=== PATIENT | male | born 1960 | race Caucasian/White ===

== ENCOUNTER 2019-02-13 14:31 | Inpatient (IN) | payer OTHER ==
[2019-02-13 18:54] VITALS: BMI 25.4
--- NOTE | 2019-02-13 21:38 | HP ---
COWS - Scale Resting Pulse: 1= [place] 81-100 (Frequent vomiting) Sweatin=Flushed/Facial Moisture Restless Observation: 3= Extraneous Movement Pupil Size: 2= Moderately Dilated ((L) pupil = 4 mm) Bone or Joint Aches: 2= Severe Diffuse Aches Runny Nose/ Eye Tearin= Runny Nose/Eyes GI Upset > 30mins: 3= Vomiting/Diarrhea Tremor Observation: 4= Gross Tremor/Twitching Yawning Observation: 0= None Anxiety or Irritability: 4=Extreme Anxiety Goose Flesh Skin: 0=Smooth Skin COWS Score: 23 CIWA Score Nausea/Vomitin-Cont. Nausea/Vomiting (Frequent vomiting) Muscle Tremors: 4-Moderate,w/Arms Extend Anxiety: 4-Mod. Anxious/Guarded Agitation: 4-Moderately Restless Paroxysmal Sweats: 3 (Increased facial moisture) Orientation: 1-Uncertain about Date Tacttile Disturbances: 0-None Auditory Disturbances: 0-None Visual Disturbances: 0-None Headache: 0-None Present CIWA-Ar Total Score: 23 - Admission Criteria OASAS Guidelines: Admission for Medically Managed Detox: Requires at least one of the followin. CIWA greater than 12 2. Seizures within the past 24 hours 3. Delirium tremens within the past 24 hours 4. Hallucinations within the past 24 hours 5. Acute intervention needed for co occurring medical disorder 6. Acute intervention needed for co occurring psychiatric disorder 7. Severe withdrawal that cannot be handled at a lower level of care (continued vomiting, continued diarrhea, abnormal vital signs) requiring intravenous medication and/or fluids 8. Patient presents the following: CIWA greater than 12 Admission Criteria Met: Admission criteria met Admission ROS [facility] Chief Complaint: Heroin and Xanax withdrawal and trouble breathing. Allergies/Adverse Reactions: Allergies Allergy/AdvReac Type Severity Reaction Status Date / Time No Known Allergies Allergy Verified 02/13/19 18:40 History of Present Illness: 58 yo presents w/ opiate and Xanax withdrawal requesting detox. Patient has a letter from his provider, dated 02/12/2019, Dr. Vaca which states he agrees patient should be detoxed and that he will stop prescribing any controlled substances (Xanax/suboxone). Patient w/ acute SOB and wheezing and treated in C w/ albuterol neb treatment. Post neb tx O2 Sat = 99 % and lungs clear. Heroin use began at age 17. Current use approx 5 bags/day IV. Cocaine use began at age 17. Alprazolam use began at age 19. Current use 6 mg daily Nicotine use began at age 17. Smokes 5 cig/day Denies seizures, blackouts, overdose. PMHx: Asthma, Hepatitis C; HTN - can't remember name of medication being taken MHHx: Depression. Denies thoughts of harming self or others. Patient Name: Gianni Pennington Date: 1960 Address: [address] [place] [address] Sex: Male Rx Written Rx Dispensed Drug Quantity Days Supply Prescriber Name 01/18/2019 01/21/2019 alprazolam 1 mg tablet 60 30 Ozzie Vaca MD 01/18/2019 01/21/2019 buprenorphine-naloxone 8-2 mg sl film 60 30 Ozzie Vaca MD 12/21/2018 12/24/2018 buprenorphine-naloxone 8-2 mg sl film 60 30 Ozzie Vaca MD 12/21/2018 12/24/2018 alprazolam 1 mg tablet 60 30 Ozzie Vaca MD 12/06/2018 12/06/2018 alprazolam 1 mg tablet 30 15 Ozzie Vaca MD 11/23/2018 11/23/2018 buprenorphine-naloxone 8-2 mg sl film 60 30 Ozzie Vaca MD 11/23/2018 11/23/2018 alprazolam 1 mg tablet 30 15 Ozzie Vaca MD 11/07/2018 11/07/2018 alprazolam 1 mg tablet 30 15 Ozzie Vaca MD 10/24/2018 10/24/2018 buprenorphine-naloxone 8-2 mg sl film 60 30 Ozzie Vaca MD 10/24/2018 10/24/2018 alprazolam 1 mg tablet 30 15 Ozzie Vaca MD 10/02/2018 10/04/2018 alprazolam 1 mg tablet 30 15 Ozzie Vaca MD 09/21/2018 09/21/2018 buprenorphine-naloxone 8-2 mg sl film 60 30 Ozzie Vaca MD 09/21/2018 09/21/2018 alprazolam 0.5 mg tablet 30 10 Ozzie Vaca MD 08/23/2018 08/27/2018 suboxone 8 mg-2 mg sl film 60 30 Ozzie Vaca MD 08/23/2018 08/27/2018 alprazolam 1 mg tablet 60 30 Nola, Ozzie Braden MD 07/26/2018 07/26/2018 alprazolam 1 mg tablet 60 30 Nola, Ozzie Braden MD 07/26/2018 07/26/2018 suboxone 8 mg-2 mg sl film 60 30 Nola, Ozzie Braden MD 06/21/2018 06/25/2018 alprazolam 1 mg tablet 60 30 Nola, Ozzie Braden MD 06/21/2018 06/25/2018 suboxone 8 mg-2 mg sl film 60 30 Nola, Ozzie Braden MD 05/23/2018 05/25/2018 suboxone 8 mg-2 mg sl film 60 30 Nola, Ozzie Braden MD 05/23/2018 05/25/2018 alprazolam 1 mg tablet 60 30 Nola, Ozzie Braden MD 04/26/2018 04/26/2018 alprazolam 1 mg tablet 60 30 Nola, Ozzie Braden MD 04/26/2018 04/26/2018 suboxone 8 mg-2 mg sl film 60 30 Nola, Ozzie Braden MD 03/29/2018 03/29/2018 alprazolam 1 mg tablet 60 30 Nola, Ozzie Braden MD 03/29/2018 03/29/2018 suboxone 8 mg-2 mg sl film 60 30 Nola, Ozzie Braden MD 02/22/2018 02/22/2018 alprazolam 1 mg tablet 60 30 Nola, Ozzie Braden MD 02/22/2018 02/22/2018 suboxone 8 mg-2 mg sl film 60 30 Nola, Ozzie Braden MD Exam Limitations: No Limitations - Ebola screening Have you traveled outside of the country in the last 21 days: No Have you had contact with anyone from an Ebola affected area: No Have you been sick,other than usual withdrawal symptoms: No (Denies recent exposure to measles) Do you have a fever: No - Review of Systems Constitutional: Chills, Diaphoresis EENT: reports: Other (Blind (R) eye w/ prosthesis) Respiratory: reports: Cough, Shortness of Breath, Wheezing Cardiac: reports: No Symptoms Reported GI: reports: Nausea, Vomiting : reports: No Symptoms Reported Musculoskeletal: reports: Other (Generalized bone pain. Uses a cane for support. ) Neuro: reports: Tremors Endocrine: reports: No Symptoms Reported Hematology: reports: Anemia (Uknown type) Psychiatric: reports: Judgement Intact, Agitated, Anxious, Depressed (Denies thoughts of harming self or others.), Disorientated (Unsure of month or day) Patient History - PPD History Previous Implant?: No Implanted On Prior R Admission?: No PPD to be Administered?: Yes - Smoking Cessation Smoking history: Current every day smoker Have you smoked in the past 12 months: Yes Aproximately how many cigarettes per day: 5 Hx Chewing Tobacco Use: No Initiated information on smoking cessation: Yes 'Breaking Loose' booklet given: 02/13/19 - Substance & Tx. History Hx Alcohol Use: No Hx Substance Use: Yes Substance Use Type: Cocaine, Heroin, Opiates, Prescribed (Xanax ) Hx Substance Use Treatment: Yes (detox) - Substances abused Heroin Substance route: Injection Frequency: Daily Amount used: 5 bags Age of first use: 17 Date of last use: 02/13/19 Cocaine Substance route: Injection Frequency: 1-2 times per week Amount used: 1 bag Age of first use: 17 Date of last use: 02/13/19 Alprazolam (Xanax) Substance route: Oral Frequency: Daily Amount used: 3 of 2 mg Age of first use: 19 Date of last use: 02/13/19 Admission Physical Exam S - Vital Signs Vital Signs: Vital Signs - 24 hr 02/13/19 18:37 Temperature 98.3 F Pulse Rate 93 H Respiratory 20 Rate Blood Pressure 149/92 - Physical General Appearance: Yes: Nourished, Moderate Distress, Tremorous, Irritable, Sweating, Anxious HEENTM: Yes: Hearing grossly Normal, Normocephalic, Normal Voice, KAREEM ((L) pupil = 4 mm), Pharynx Normal, Orbits (Blind (R) eye w/ prosthesis), Other ( Perforated nasal septum) Respiratory: Yes: Lungs Clear (After albuterol neb tx.), Normal Breath Sounds, No Respiratory Distress Neck: Yes: No masses,lesions,Nodules, Supple Breast: Yes: Breast Exam Deferred Cardiology: Yes: Regular Rhythm, Regular Rate, S1, S2 Abdominal: Yes: Non Tender, Flat, Soft, Increased Bowel Sounds, Other (vomiting) Genitourinary: Yes: Within Normal Limits Back: Yes: Normal Inspection Musculoskeletal: Yes: full range of Motion, Gait Steady Extremities: Yes: Normal Capillary Refill, Tremors (gross tremors) 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, Fully Oriented, Alert, Motor Strength 5/5 Integumentary: Yes: Normal Color, Warm, Track [place] Lymphatic: Yes: Within Normal Limits - Diagnostic (1) Opioid dependence with withdrawal Current Visit: Yes Status: Acute (2) Cocaine dependence, uncomplicated Current Visit: Yes Status: Chronic (3) Sedative, hypnotic or anxiolytic dependence with withdrawal, uncomplicated Current Visit: Yes Status: Acute (4) Nicotine dependence, uncomplicated Current Visit: Yes Status: Chronic Qualifiers: Nicotine product type: cigarettes Qualified Code(s): F17.210 - Nicotine dependence, cigarettes, uncomplicated (5) Asthma Current Visit: Yes Status: Acute Qualifiers: Asthma severity: moderate Asthma persistence: unspecified Asthma complication type: with acute exacerbation Qualified Code(s): J45.901 - Unspecified asthma with (acute) exacerbation (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 (7) Perforated nasal septum Current Visit: Yes Status: Chronic Cleared for Admission S - Detox or Rehab [facility] Level of Care: Medically Managed Detox Regimen/Protocol: Methadone/Valium Claeared for Rehab Admission: No Breathalyzer - Breathalyzer Breathalyzer: 0 Urine Drug Screen - Test Device Lot number: [id number] Expiration date: 11/20/20 - Control Is test valid?: Yes - Results Drug screen NEGATIVE: No Urine drug screen results: THC-Marijuana, OBIE-Cocaine, FEN-Fentanyl, MOP-Opiates , OXY-Oxycodone, BZO-Benzodiazepines Inpatient Rehab Admission - Rehab Decision to Admit Inpatient rehab admission?: No
[2019-02-13] MEDS ORDERED: MAG HYDROX/AL HYDROX/SIMETH 30 ML UNIT-DOSE CUP PO PRN (22:38)
[2019-02-13] MEDS ORDERED: METHOCARBAMOL 500 MG TABLET PO PRN (22:38)
[2019-02-13] MEDS ORDERED: MENTHOL/PHENOL 1 EACH UD MM PRN (22:38)
[2019-02-13] MEDS ORDERED: MAGNESIUM HYDROX 2400MG/30ML ORAL SUSPENSION 30 ML CUP PO PRN (22:38)
[2019-02-13] MEDS ORDERED: METHADONE HCL 10 MG TABLET (FOR DETOX USE ONLY) PO ONE (22:38)
[2019-02-13] MEDS ORDERED: NICOTINE POLACRILEX 2 MG GUM BUC PRN (22:38)
[2019-02-13] MEDS ORDERED: MAGNESIUM CITRATE 300 ML BOTTLE PO PRN (22:38)
[2019-02-13] MEDS ORDERED: IBUPROFEN 400 MG TABLET (FP) PO PRN (22:38)
[2019-02-13] MEDS ORDERED: ACETAMINOPHEN 325 MG TABLET (FP) PO PRN ×2 (22:38)
[2019-02-13] MEDS ORDERED: BISMUTH SUBSALICYLATE 524 MG/30 ML UD PO PRN (22:38)
[2019-02-13] MEDS ORDERED: LORazepam 1 MG TABLET PO PRN (22:38)
[2019-02-13] MEDS ORDERED: cloNIDine HCL 0.1 MG TABLET PO PRN (22:38)
[2019-02-13] MEDS ORDERED: ONDANSETRON *ODT* 4 MG TABLET SL PRN (22:43)
[2019-02-13] MEDS ORDERED: TRIMETHOBENZAMIDE HCL 200MG/2ML INJ IM ONE (22:43)
[2019-02-13] MEDS ORDERED: ALBUTEROL SO4 2.5/IPRATROPIUM 0.5 INH SOL 3 ML VIAL.NEB. NEB ONE (23:00)
[2019-02-13] MEDS: LORazepam 2 MG TABLET PO SCH (23:26)
[2019-02-13] MEDS: MELATONIN 5 MG TABLETS PO PRN (23:26)
[2019-02-14] MEDS: LORazepam 2 MG TABLET PO SCH ×4 (05:11→22:22)
[2019-02-14] MEDS ORDERED: ALBUTEROL SO4 8 GM HFA INHALER IH ONE (07:41)
[2019-02-14] MEDS: ALBUTEROL SO4 0.083% IH SOL 2.5 MG/3 ML VIAL.NEB. NEB PRN (08:01)
[2019-02-14] MEDS ORDERED: METHADONE HCL 5 MG TABLET (FOR DETOX USE ONLY) PO ONE (10:00)
[2019-02-14 10:41] LABS: HEMOGLOBIN 13.8 GM/dL (11.7-16.9); MCH 31.2 pg (25.7-33.7); MCHC 33.8 g/dl (32.0-35.9); MEAN CELL VOLUME 92.3 fl (80-96); MEAN PLT VOLUME 9.8 fl (7.5-11.1); PLATELET COUNT 184 K/MM3 (134-434); RBC 4.44 M/mm3 (4.00-5.60); RDW 13.6 % (11.9-15.9); WHITE BLOOD COUNT 7.5 K/mm3 (4.0-10.0)
[2019-02-14 10:49] LABS: ALBUMIN 3.7 g/dl (3.4-5.0); BILIRUBIN,TOTAL 0.6 mg/dL (0.2-1); BLOOD UREA NITROGEN 15.8 mg/dL (7-18); CALCIUM 9.1 mg/dL (8.5-10.1); CREATININE 0.8 mg/dL (0.55-1.3); POTASSIUM 4.4 mmol/L (3.5-5.1); TOT PROT 6.7 g/dl (6.4-8.2)
--- NOTE | 2019-02-14 11:10 | PN ---
[facility] CIWA - CIWA Score Nausea/Vomitin-Mild Nausea/No Vomiting Muscle Tremors: 4-Moderate,w/Arms Extend Anxiety: 4-Mod. Anxious/Guarded Agitation: 4-Moderately Restless Paroxysmal Sweats: 1-Minimal Palms Moist Orientation: 1-Uncertain about Date Tacttile Disturbances: 1-Very Mild Itch/Numbness Auditory Disturbances: 0-None Visual Disturbances: 0-None Headache: 2-Mild CIWA-Ar Total Score: 18 BHS COWS - Scale Resting Pulse: 1= [place] 81-100 Sweatin= Chills/Flushing Restless Observation: 1= Difficult to Sit Still Pupil Size: 0= Normal to Room Light Bone or Joint Aches: 2= Severe Diffuse Aches Runny Nose/ Eye Tearin= Runny Nose/Eyes GI Upset > 30mins: 2= Nausea/Diarrhea Tremor Observation of Outstretched Hands: 2= Slight Tremor Visible Yawning Observation: 2= >3x During Session Anxiety or Irritability: 2=Irritable/Anxious Goose Flesh Skin: 3=Piloerection COWS Score: 18 [facility] Progress Note (SOAP) Subjective: doing well with ativan and methadone detox regimen taking suboxone 8-2mg po bid last 30 days filled 01/18/19 negative urine suboxone Objective: 02/14/19 11:15 Vital Signs Temperature 97.6 F 02/14/19 09:48 Pulse Rate 87 02/14/19 09:48 Respiratory Rate 18 02/14/19 09:48 Blood Pressure 121/72 02/14/19 09:48 O2 Sat by Pulse Oximetry (%) 98 02/14/19 08:31 Laboratory Last Values WBC 7.5 K/mm3 (4.0-10.0) 02/14/19 07:30 RBC 4.44 M/mm3 (4.00-5.60) 02/14/19 07:30 Hgb 13.8 GM/dL (11.7-16.9) 02/14/19 07:30 Hct 41.0 % (35.4-49) 02/14/19 07:30 MCV 92.3 fl (80-96) 02/14/19 07:30 MCH 31.2 pg (25.7-33.7) 02/14/19 07:30 MCHC 33.8 g/dl (32.0-35.9) 02/14/19 07:30 RDW 13.6 % (11.9-15.9) 02/14/19 07:30 Plt Count 184 K/MM3 (134-434) 02/14/19 07:30 MPV 9.8 fl (7.5-11.1) 02/14/19 07:30 Sodium 137 mmol/L (136-145) 02/14/19 07:30 Potassium 4.4 mmol/L (3.5-5.1) 02/14/19 07:30 Chloride 104 mmol/L (98-107) 02/14/19 07:30 Carbon Dioxide 29 mmol/L (21-32) 02/14/19 07:30 Anion Gap 5 MMOL/L (8-16) L 02/14/19 07:30 BUN 15.8 mg/dL (7-18) 02/14/19 07:30 Creatinine 0.8 mg/dL (0.55-1.3) 02/14/19 07:30 Est GFR (CKD-EPI)AfAm 113.33 02/14/19 07:30 Est GFR (CKD-EPI)NonAf 97.78 02/14/19 07:30 Random Glucose 90 mg/dL (74-106) 02/14/19 07:30 Calcium 9.1 mg/dL (8.5-10.1) 02/14/19 07:30 Total Bilirubin 0.6 mg/dL (0.2-1) 02/14/19 07:30 AST 19 U/L (15-37) 02/14/19 07:30 ALT 16 U/L (13-61) 02/14/19 07:30 Alkaline Phosphatase 52 U/L (45-117) 02/14/19 07:30 Total Protein 6.7 g/dl (6.4-8.2) 02/14/19 07:30 Albumin 3.7 g/dl (3.4-5.0) 02/14/19 07:30 lab noted Assessment: 02/14/19 11:15 benzo and opiate withdrawal sx Plan: continue benzo and opiate detox
[2019-02-14] MEDS: PRENATAL VITAMINS W/ FOLIC ACID TABLET (FP) PO SCH (11:11)
--- NOTE | 2019-02-14 14:40 | EKG ---
Test Reason : Blood Pressure : / mmHG Vent. Rate : 086 BPM Atrial Rate : 086 BPM P-R Int : 156 ms QRS Dur : 088 ms QT Int : 360 ms P-R-T Axes : 082 076 067 degrees QTc Int : 430 ms NORMAL SINUS RHYTHM NORMAL ECG NO PREVIOUS ECGS AVAILABLE Confirmed by AVRIL CASTLE, ANA ([id number]) on 02/14/2019 2:39:57 PM Referred By: TOMY RAMOS Confirmed By:ANA MACKENZIE MD
[2019-02-14 15:15] LABS: PH,URINE 6.5 (5.0-8.0); URINE APPEARANCE TURBID; URINE BILIRUBIN NEGATIVE (NEGATIVE); URINE COLOR DK YELLOW; URINE GLUCOSE (UA) NEGATIVE (NEGATIVE); URINE KETONE NEGATIVE (NEGATIVE); URINE LEUK ESTERASE NEGATIVE (NEGATIVE); URINE NITRITE NEGATIVE (NEGATIVE); URINE PROTEIN NEGATIVE (NEGATIVE)
[2019-02-14] MEDS: THIAMINE HCL 100 MG TABLET (FP) PO SCH (22:22)
[2019-02-14] MEDS: MELATONIN 5 MG TABLETS PO PRN (22:22)
[2019-02-15] MEDS: ALBUTEROL SO4 8 GM HFA INHALER IH PRN ×2 (01:31→22:09)
[2019-02-15] MEDS: ALBUTEROL SO4 0.083% IH SOL 2.5 MG/3 ML VIAL.NEB. NEB PRN (05:01)
[2019-02-15] MEDS: LORazepam 1 MG TABLET PO SCH ×4 (05:01→22:09)
[2019-02-15] MEDS ORDERED: METHADONE HCL 10 MG TABLET (FOR DETOX USE ONLY) PO ONE (10:00)
[2019-02-15] MEDS: PRENATAL VITAMINS W/ FOLIC ACID TABLET (FP) PO SCH (10:32)
[2019-02-15] MEDS: PROCHLORPERAZINE MALEATE 5 MG TABLET PO PRN (16:47)
--- NOTE | 2019-02-15 17:24 | PN ---
S CIWA - CIWA Score Nausea/Vomitin Muscle Tremors: 2 Anxiety: 3 Agitation: 1-Slight > Activity Paroxysmal Sweats: No Perspiration Orientation: 0-Oriented Tacttile Disturbances: 0-None Auditory Disturbances: 2-Mild Harshness/Frighten Visual Disturbances: 0-None Headache: 0-None Present CIWA-Ar Total Score: 13 BHS COWS - Scale Resting Pulse: 2= [place] 101-120 Sweatin= Chills/Flushing Restless Observation: 1= Difficult to Sit Still Pupil Size: 0= Normal to Room Light Bone or Joint Aches: 0= None Runny Nose/ Eye Tearin= None GI Upset > 30mins: 3= Vomiting/Diarrhea Tremor Observation of Outstretched Hands: 1= Tremor [place], Not Seen Yawning Observation: 1= 1-2x During Session Anxiety or Irritability: 2=Irritable/Anxious Goose Flesh Skin: 3=Piloerection COWS Score: 14 [facility] Progress Note (SOAP) Subjective: Interrupted Sleep, Vomiting, Diarrhea, Chills. Objective: PATIENT A & O X 2 (UNCERTAIN ABOUT CURRENT DAY / DATE). PATIENT OBSERVED AMBULATING ON UNIT WITH ASSISTANCE OF A CANE. IN NO ACUTE DISTRESS. 02/15/19 17:22 Vital Signs Temperature 96 F L 02/15/19 13:48 Pulse Rate 90 02/15/19 13:48 Respiratory Rate 18 02/15/19 13:48 Blood Pressure 137/97 02/15/19 13:48 O2 Sat by Pulse Oximetry (%) 98 02/14/19 08:31 Laboratory Tests 02/14/19 02/14/19 02/14/19 07:30 07:30 07:30 WBC 7.5 RBC 4.44 Hgb 13.8 Hct 41.0 MCV 92.3 MCH 31.2 MCHC 33.8 RDW 13.6 Plt Count 184 MPV 9.8 Sodium 137 Potassium 4.4 Chloride 104 Carbon Dioxide 29 Anion Gap 5 L BUN 15.8 Creatinine 0.8 Est GFR (CKD-EPI)AfAm 113.33 Est GFR (CKD-EPI)NonAf 97.78 Random Glucose 90 Calcium 9.1 Total Bilirubin 0.6 AST 19 ALT 16 Alkaline Phosphatase 52 Total Protein 6.7 Albumin 3.7 Urine Color Urine Appearance Urine pH Ur Specific [place] Urine Protein Urine Glucose (UA) Urine Ketones Urine Blood Urine Nitrite Urine Bilirubin Urine Urobilinogen Ur Leukocyte Esterase RPR Titer Nonreactive 02/14/19 10:45 WBC RBC Hgb Hct MCV MCH MCHC RDW Plt Count MPV Sodium Potassium Chloride Carbon Dioxide Anion Gap BUN Creatinine Est GFR (CKD-EPI)AfAm Est GFR (CKD-EPI)NonAf Random Glucose Calcium Total Bilirubin AST ALT Alkaline Phosphatase Total Protein Albumin Urine Color Dk yellow Urine Appearance Turbid Urine pH 6.5 Ur Specific [place] 1.028 Urine Protein Negative Urine Glucose (UA) Negative Urine Ketones Negative Urine Blood Negative Urine Nitrite Negative Urine Bilirubin Negative Urine Urobilinogen 1.0 Ur Leukocyte Esterase Negative RPR Titer LABS NOTED. RESULTS OF QFT /TB TEST PENDING. 02/15/19 17:23 Assessment: 02/15/19 17:23 WITHDRAWAL SYMPTOMS. Plan: PATIENT CONTINUE DETOX. INCREASE DAILY PO WATER INTAKE. PRN COMPAZINE PO FOR NAUSEA / VOMITING. PRN PEPTO-BISMOL PO FOR DIARRHEA.
[2019-02-15] MEDS: MELATONIN 5 MG TABLETS PO PRN (22:09)
[2019-02-15] MEDS: THIAMINE HCL 100 MG TABLET (FP) PO SCH (22:09)
[2019-02-16] MEDS ORDERED: LORazepam 0.5 MG TABLET PO PRN
[2019-02-16] MEDS: LORazepam 0.5 MG TABLET PO SCH ×4 (05:30→22:38)
[2019-02-16] MEDS ORDERED: METHADONE HCL 5 MG TABLET (FOR DETOX USE ONLY) PO ONE (06:00)
[2019-02-16] MEDS: ALBUTEROL SO4 0.083% IH SOL 2.5 MG/3 ML VIAL.NEB. NEB PRN (07:20)
[2019-02-16] MEDS: PRENATAL VITAMINS W/ FOLIC ACID TABLET (FP) PO SCH (10:22)
--- NOTE | 2019-02-16 15:02 | PN ---
[facility] CIWA - CIWA Score Nausea/Vomitin-No Nausea/No Vomiting Muscle Tremors: 2 Anxiety: 2 Agitation: 0-Normal Activity Paroxysmal Sweats: 1-Minimal Palms Moist Orientation: 0-Oriented Tacttile Disturbances: 2-Mild Itch/Numbness/Burn Auditory Disturbances: 0-None Visual Disturbances: 0-None Headache: 0-None Present CIWA-Ar Total Score: 7 S COWS - Scale Resting Pulse: 2= [place] 101-120 Sweatin= Chills/Flushing Restless Observation: 0= Sits Still Pupil Size: 0= Normal to Room Light Bone or Joint Aches: 0= None Runny Nose/ Eye Tearin= None GI Upset > 30mins: 0= None Tremor Observation of Outstretched Hands: 1= Tremor [place], Not Seen Yawning Observation: 0= None Anxiety or Irritability: 0= None Goose Flesh Skin: 3=Piloerection COWS Score: [address] [facility] Progress Note (SOAP) Subjective: Chills, Anxious. Patient reports that current Withdrawal / Detox symptoms have subsided considerably in degree since time of admission to Detox and that he feels well overall at this time. Objective: PATIENT A & O X 2 (UNCERTAIN ABOUT CURRENT LOCATION). PATIENT OBSERVED AMBULATING ON UNIT UNASSISTED. IN NO ACUTE DISTRESS. 02/16/19 14:59 Vital Signs Temperature 97.2 F L 02/16/19 13:36 Pulse Rate 84 02/16/19 13:36 Respiratory Rate 18 02/16/19 13:36 Blood Pressure 119/85 02/16/19 13:36 O2 Sat by Pulse Oximetry (%) 98 02/14/19 08:31 Laboratory Tests 02/14/19 02/14/19 02/14/19 07:30 07:30 07:30 WBC 7.5 RBC 4.44 Hgb 13.8 Hct 41.0 MCV 92.3 MCH 31.2 MCHC 33.8 RDW 13.6 Plt Count 184 MPV 9.8 Sodium 137 Potassium 4.4 Chloride 104 Carbon Dioxide 29 Anion Gap 5 L BUN 15.8 Creatinine 0.8 Est GFR (CKD-EPI)AfAm 113.33 Est GFR (CKD-EPI)NonAf 97.78 Random Glucose 90 Calcium 9.1 Total Bilirubin 0.6 AST 19 ALT 16 Alkaline Phosphatase 52 Total Protein 6.7 Albumin 3.7 Urine Color Urine Appearance Urine pH Ur Specific [place] Urine Protein Urine Glucose (UA) Urine Ketones Urine Blood Urine Nitrite Urine Bilirubin Urine Urobilinogen Ur Leukocyte Esterase RPR Titer Nonreactive 02/14/19 10:45 WBC RBC Hgb Hct MCV MCH MCHC RDW Plt Count MPV Sodium Potassium Chloride Carbon Dioxide Anion Gap BUN Creatinine Est GFR (CKD-EPI)AfAm Est GFR (CKD-EPI)NonAf Random Glucose Calcium Total Bilirubin AST ALT Alkaline Phosphatase Total Protein Albumin Urine Color Dk yellow Urine Appearance Turbid Urine pH 6.5 Ur Specific [place] 1.028 Urine Protein Negative Urine Glucose (UA) Negative Urine Ketones Negative Urine Blood Negative Urine Nitrite Negative Urine Bilirubin Negative Urine Urobilinogen 1.0 Ur Leukocyte Esterase Negative RPR Titer LABS NOTED. Assessment: 02/16/19 15:00 WITHDRAWAL SYMPTOMS. Plan: CONTINUE DETOX. PATIENT SCHEDULED FOR D/C FROM DETOX UNIT TOMORROW.
[2019-02-16] MEDS: PROCHLORPERAZINE MALEATE 5 MG TABLET PO PRN (16:01)
[2019-02-16] MEDS: THIAMINE HCL 100 MG TABLET (FP) PO SCH (22:38)
[2019-02-16] MEDS: MELATONIN 5 MG TABLETS PO PRN (22:38)
[2019-02-17] MEDS: ALBUTEROL SO4 0.083% IH SOL 2.5 MG/3 ML VIAL.NEB. NEB PRN (03:42)
[2019-02-17] MEDS ORDERED: LORazepam 0.5 MG TABLET PO ONE (05:00)
[2019-02-17 09:36] VITALS: BP 127/92; PULSE 104; TEMP 99
--- NOTE | 2019-02-17 14:25 | DS ---
[facility] Detox Discharge Summary Admission Date: 02/13/19 Discharge Date: 02/17/19 - History Present History: Opioid Dependence, Sedative Dependence Additional Comments: 58 years old male admitted on 02/13/19 for benzo and opiate withdrawal sx doing well with ativan and methadone detox regimen no complication throughout the detox stay alert oriented x 3 denies dizziness no shortness of breath revelation aftercare - Physical Exam Results Vital Signs: Vital Signs Temperature 99.0 F 02/17/19 09:35 Pulse Rate 104 H 02/17/19 09:35 Respiratory Rate 20 02/17/19 09:35 Blood Pressure 127/92 02/17/19 09:35 O2 Sat by Pulse Oximetry (%) 98 02/14/19 08:31 Pertinent Admission Physical Exam Findings: benzo and opiate withdrawal sx Vital Signs Temperature 99.0 F 02/17/19 09:35 Pulse Rate 104 H 02/17/19 09:35 Respiratory Rate 20 02/17/19 09:35 Blood Pressure 127/92 02/17/19 09:35 O2 Sat by Pulse Oximetry (%) 98 02/14/19 08:31 Laboratory Last Values WBC 7.5 K/mm3 (4.0-10.0) 02/14/19 07:30 RBC 4.44 M/mm3 (4.00-5.60) 02/14/19 07:30 Hgb 13.8 GM/dL (11.7-16.9) 02/14/19 07:30 Hct 41.0 % (35.4-49) 02/14/19 07:30 MCV 92.3 fl (80-96) 02/14/19 07:30 MCH 31.2 pg (25.7-33.7) 02/14/19 07:30 MCHC 33.8 g/dl (32.0-35.9) 02/14/19 07:30 RDW 13.6 % (11.9-15.9) 02/14/19 07:30 Plt Count 184 K/MM3 (134-434) 02/14/19 07:30 MPV 9.8 fl (7.5-11.1) 02/14/19 07:30 Sodium 137 mmol/L (136-145) 02/14/19 07:30 Potassium 4.4 mmol/L (3.5-5.1) 02/14/19 07:30 Chloride 104 mmol/L (98-107) 02/14/19 07:30 Carbon Dioxide 29 mmol/L (21-32) 02/14/19 07:30 Anion Gap 5 MMOL/L (8-16) L 02/14/19 07:30 BUN 15.8 mg/dL (7-18) 02/14/19 07:30 Creatinine 0.8 mg/dL (0.55-1.3) 02/14/19 07:30 Est GFR (CKD-EPI)AfAm 113.33 02/14/19 07:30 Est GFR (CKD-EPI)NonAf 97.78 02/14/19 07:30 Random Glucose 90 mg/dL (74-106) 02/14/19 07:30 Calcium 9.1 mg/dL (8.5-10.1) 02/14/19 07:30 Total Bilirubin 0.6 mg/dL (0.2-1) 02/14/19 07:30 AST 19 U/L (15-37) 02/14/19 07:30 ALT 16 U/L (13-61) 02/14/19 07:30 Alkaline Phosphatase 52 U/L (45-117) 02/14/19 07:30 Total Protein 6.7 g/dl (6.4-8.2) 02/14/19 07:30 Albumin 3.7 g/dl (3.4-5.0) 02/14/19 07:30 Urine Color Dk yellow 02/14/19 10:45 Urine Appearance Turbid 02/14/19 10:45 Urine pH 6.5 (5.0-8.0) 02/14/19 10:45 Ur Specific [place] 1.028 (1.010-1.035) 02/14/19 10:45 Urine Protein Negative (NEGATIVE) 02/14/19 10:45 Urine Glucose (UA) Negative (NEGATIVE) 02/14/19 10:45 Urine Ketones Negative (NEGATIVE) 02/14/19 10:45 Urine Blood Negative (NEGATIVE) 02/14/19 10:45 Urine Nitrite Negative (NEGATIVE) 02/14/19 10:45 Urine Bilirubin Negative (NEGATIVE) 02/14/19 10:45 Urine Urobilinogen 1.0 mg/dL (0.2-1.0) 02/14/19 10:45 Ur Leukocyte Esterase Negative (NEGATIVE) 02/14/19 10:45 RPR Titer Nonreactive (NONREACTIVE) 02/14/19 07:30 TB (QFT) Incubation (.) 02/14/19 07:30 TB Test (QFT) Nil 0.09 IU/mL (.) 02/14/19 07:30 TB Test (QFT) Mitogen >10.00 IU/mL (.) 02/14/19 07:30 TB Test (QFT) Antigen 0.10 IU/mL (.) 02/14/19 07:30 TB Test (QFT) Negative (Negative) 02/14/19 07:30 TB Positive Criteria (.) 02/14/19 07:30 lab noted - Treatment Hospital Course: Detox Protocol Followed, Detoxed Safely, Responded well, Discharged Condition Good, Rehab Referral Accepted Patient has Accepted a Rehab Referral to: [facility] - Medication Discharge Medications: Ambulatory Orders Albuterol Sulfate Inhaler - 2 inhaler PO Q4HWA 02/13/19 - Diagnosis (1) Alcohol dependence with uncomplicated withdrawal Status: Acute (2) Uncomplicated opioid dependence Status: Acute (3) Asthma Status: Chronic Qualifiers: Asthma severity: mild Asthma persistence: intermittent Asthma complication type: with status asthmaticus Qualified Code(s): J45.22 - Mild intermittent asthma with status asthmaticus (4) Sedative, hypnotic or anxiolytic dependence with withdrawal, uncomplicated Status: Acute (5) Blind right eye Status: Chronic (6) Nicotine dependence, uncomplicated Status: Acute Qualifiers: Nicotine product type: cigarettes Qualified Code(s): F17.210 - Nicotine dependence, cigarettes, uncomplicated - AMA Did Patient Leave Against Medical Advice: No
== END 2019-02-17 09:15 | disposition home or self-care (01) | DRG 773 ==
LOC: YASAS 14:31 → Y3N 21:24
PROVIDERS: ADMIT Surgery; ATTEND Surgery
PROC: HZ2ZZZZ Detoxification Services for Substance Abuse Treatment (ICD-10-PCS; principal; 2019-02-13)
DX: F11.23 Opioid dependence with withdrawal (principal); F10.230 Alcohol dependence with withdrawal, uncomplicated; F13.230 Sedative, hypnotic or anxiolytic dependence with withdrawal, uncomplicated; F14.20 Cocaine dependence, uncomplicated; I10 Essential (primary) hypertension; J45.22 Mild intermittent asthma with status asthmaticus; B18.2 Chronic viral hepatitis C; H54.61 Unqualified visual loss, right eye, normal vision left eye
CPT/HCPCS: 36415; 80053; 81003; 85027; 86480; 86593; 93005; 93010; 94640; J0735